=== PATIENT | female | born 1955 | race Caucasian/White ===

== ENCOUNTER 2018-09-13 21:04 | Inpatient (IN) | payer OTHER ==
[~2018-09-13] VITALS: Ht 162.6 cm; Wt 64.5 kg
[~2018-09-13 21:04] MED LIST: GLUCOSAMIN 500 PO
[2018-09-13 23:11] LABS: BASO % 0.8 % (0.0-2.0); EOS # 0.1 (0.0-0.7); GRAN # 1.7 (1.4-6.5); GRAN % 34.3 % (42.2-75.2); HEMOGLOBIN 10.3 g/dl (12.5-16.0); LYMPH # 2.3 (1.2-3.4); LYMPH % 45.8 % (20.0-51.0); MEAN CELL VOLUME 89 fl (80.0-100.0); MEAN CORPUSCULAR HEMOGLOBIN 30 pg (27.0-31.0); MEAN CORPUSCULAR HGB CONC 33 g/dl (33.0-37.0); MEAN PLATELET VOLUME 9.3 fl (7.4-10.4); MONO # 0.9 (0.1-0.6); MONO % 17.9 % (1.7-9.3); PLATELET COUNT 252 K/mm3 (130-400); RED BLOOD COUNT 3.46 M/mm3 (4.10-5.30); REDCELL DISTRIBUTION WIDTH-CV 16.5 % (11.5-14.5)
[2018-09-13 23:12] LABS: HEMATOCRIT 30.8 % (37.0-47.0)
[2018-09-13 23:25] LABS: ALANINE AMINOTRANSFERASE 34 U/L (9-52); ALBUMIN 4.1 gm/dL (3.5-5.0); ALKALINE PHOSPHATASE 158 U/L (50-136); ANION GAP 11 mmol/L (7-16); AST,SGOT 38 U/L (15-37); BILIRUBIN,TOTAL 0.2 mg/dL (0.0-1.0); BLOOD UREA NITROGEN 12 mg/dL (7-17); C-REACTIVE PROTEIN 1.7 mg/dL (0.0-0.9); CALCIUM 9.8 mg/dL (8.4-10.2); CARBON DIOXIDE 24 mmol/L (22-30); CHLORIDE 102 mmol/L (98-107); CREATININE, serum 0.74 (0.52-1.25); GLUCOSE 113 mg/dL (74-106); SODIUM 137 mmol/L (137-145); TOTAL PROTEIN 7.6 gm/dL (6.4-8.2)
[2018-09-13 23:54] LABS: TROPONIN-I < 0.012 ng/mL (0.000-0.035)
[2018-09-13] MEDS ORDERED: LIPITOR 40MG TA40 MG PO (23:58)
[2018-09-13] MEDS ORDERED: ZITHROMAX Z PA250 MG PO (23:58)
[2018-09-13] MEDS ORDERED: CALCIUM 600/VIT1 CAP PO (23:59)
[2018-09-13] MEDS ORDERED: DECADRON 4MG TAB4 MG PO (23:59)
[2018-09-14] MEDS ORDERED: PRINIVIL10 MG PO
[2018-09-14] MEDS ORDERED: HALLS9.1 MG
[2018-09-14] MEDS ORDERED: ADVIL200 MG PO
[2018-09-14 00:01] LABS: COLLECTION METHOD CLEAN CATCH
[2018-09-14] MEDS ORDERED: ATIVAN 0.50.5 MG/TAB PO (00:01)
[2018-09-14] MEDS ORDERED: MULTI VITAMINS1 TAB PO (00:02)
[2018-09-14] MEDS ORDERED: CARDI-OMEGA1000 MG (00:03)
[2018-09-14] MEDS ORDERED: VERAPAMIL120 MG/TA1 PO (00:04)
[2018-09-14] MEDS ORDERED: ZOFRAN ODT8 MG PO (00:04)
[2018-09-14] MEDS ORDERED: COMPAZINE 110 MG/TAB PO (00:04)
[2018-09-14] MEDS ORDERED: ZANTAC 150150 MG (00:04)
[2018-09-14 00:06] LABS: PH 6 (5-8); SQUAMOUS EPITHELIAL None Seen /hpf; URINE APPEARANCE Clear; URINE BACTERIA None Seen /hpf; URINE BILIRUBIN Negative (NEGATIVE); URINE BLOOD 2+ (NEGATIVE); URINE COLOR Colorless; URINE GLUCOSE Negative (NEGATIVE); URINE KETONE Negative (NEGATIVE); URINE LEUKOCYTE ESTERASE Negative (NEGATIVE); URINE NITRATE Negative (NEGATIVE); URINE PROTEIN(semi-quant) Negative (NEGATIVE); URINE RBC None Seen /hpf; URINE UROBILINOGEN Negative (NEGATIVE)
[2018-09-14 01:21] VITALS: BP 135/65; PULSE 117; TEMP 99.2
[2018-09-14] MEDS ORDERED: TYLENOL 325MG325 MG PO (01:53)
[2018-09-14] MEDS ORDERED: BENADRYL25 M2 PO (02:19)
--- NOTE | 2018-09-14 03:10 | NUR ---
Patient arrived to unit at 0130. 5 page, med rec, and initial completed. Patient denies pain. Noted to have a cough, but states its non-productive. Alert and oriented. States she had chemo last , September 04. She gets this every 3 weeks. She lives in [place] and is here visiting her sister in between chemo sessions. Heart rate continues to be above 100. Ermelinda Degroot, notified. Continues on telemetry. Will continue to monitor patient.
[2018-09-14 03:40] VITALS: BP 140/68; PULSE 124; TEMP 98.2
--- NOTE | 2018-09-14 06:16 | NUR ---
Patient stated she takes Benadryl at night to help her sleep sometimes and she would like this to help her sleep. PRN Benadryl given and effective. Patient has rested well since about 0400. Denies needs.
--- NOTE | 2018-09-14 06:56 | NUR ---
Report given to MELISSA Lopez.
[2018-09-14 07:50] VITALS: BP 133/68; PULSE 102; TEMP 98.5
[2018-09-14 08:06] LABS: BASO % 0.6 % (0.0-2.0); EOS # 0.1 (0.0-0.7); GRAN # 1.5 (1.4-6.5); GRAN % 29.9 % (42.2-75.2); LYMPH # 2.4 (1.2-3.4); LYMPH % 49.3 % (20.0-51.0); MEAN CELL VOLUME 91 fl (80.0-100.0); MEAN CORPUSCULAR HGB CONC 33 g/dl (33.0-37.0); MEAN PLATELET VOLUME 9.5 fl (7.4-10.4); MONO # 0.9 (0.1-0.6); MONO % 18.4 % (1.7-9.3); PLATELET COUNT 241 K/mm3 (130-400); RED BLOOD COUNT 2.97 M/mm3 (4.10-5.30); REDCELL DISTRIBUTION WIDTH-CV 16.8 % (11.5-14.5)
[2018-09-14 08:10] LABS: HEMATOCRIT 27.1 % (37.0-47.0); HEMOGLOBIN 8.8 g/dl (12.5-16.0); MEAN CORPUSCULAR HEMOGLOBIN 30 pg (27.0-31.0)
[2018-09-14 08:11] LABS: CALCIUM 8.6 mg/dL (8.4-10.2); CREATININE, serum 0.74 (0.52-1.25); POTASSIUM 3.9 mmol/L (3.4-5.0)
--- NOTE | 2018-09-14 10:13 | NUR ---
Patient resting in bed. Breakfast ordered. Denies pain. He sister stopped by. Spoke with warehouse shift supervisor about Port, no blood returned, but she said it is okay to infuse medications since it flushes well. Will let her rest
--- NOTE | 2018-09-14 11:13 | NUR ---
Patient sleeping soundly at this time, soft snoring noted.
[2018-09-14 11:30] VITALS: BP 132/62; PULSE 102; TEMP 98.7
--- NOTE | 2018-09-14 12:28 | NUR ---
Patient is from [place], [place] where she lives with her (Janes) but from May-September each year she travels back and forth to help at the [facility] [employer]. Patient is mostly independent with daily living activites however she is undergoing chemotherapy for urinary cancer and is in close contact with her primary care physician in [place]. Patient has no durable medical equipment anticipated needs at this time, her pharmacy is [facility], and she does not have advance directives completed at this time. No further needs and geriatric social work professor will follow as needed.
--- NOTE | 2018-09-14 13:44 | NUR ---
Patient ordered lunch. pain managed. rounded. Orders obtained.
--- NOTE | 2018-09-14 14:47 | NUR ---
Patient did well with lunch. Independent in room.
[2018-09-14 16:07] VITALS: BP 137/69; PULSE 103; TEMP 98.7
--- NOTE | 2018-09-14 17:12 | NUR ---
PATIENT AMBULTED THE HALLS & DID WELL. SITTING UP IN CHAIR.
[2018-09-14 19:33] VITALS: BP 151/71; PULSE 112; TEMP 99.4
--- NOTE | 2018-09-14 19:45 | NUR ---
Bedside report received from MELISSA Snell
--- NOTE | 2018-09-14 20:00 | NUR ---
Assessment complete. Patient up sitting in the chair at this time. States she is going to be playing cards with her sister who is coming to visit. No complaints of pain. Lungs are coarse in all huitron, patient now has a dry cough, was previously productive. Bowel sounds are active, HR regular. Patient has no current needs at this time. Will continue to monitor. Call light within reach.
--- NOTE | 2018-09-15 | NUR ---
Patient in bed at this time. Requests some benadryl to help sleep. Patient states that her dry cough is making her leak urine and requests for adult diaper to put on. Provided. Patient has no further needs. Will continue to monitor. Call light within reach.
[2018-09-15 00:28] VITALS: BP 136/72; PULSE 101; TEMP 98.3
--- NOTE | 2018-09-15 04:00 | NUR ---
Patient asleep at this time but awakens to knock at the door. Patient has complaints of pain in her hip at 2/10, does not want anything for it right now. No further needs. Will continue to monitor. Call light within reach.
--- NOTE | 2018-09-15 04:00 | NUR ---
Patient up to the restroom at this time. Standby assist. Patient returns to bed and wishes to sleep more. Patient rates pain 2/10 or a 4/10 when walking. States it is much improved since yesterday. Patient has no further needs at this time. Will continue to monitor. Call light within reach.
[2018-09-15 04:37] VITALS: BP 136/78; PULSE 99; TEMP 98.2
--- NOTE | 2018-09-15 07:21 | NUR ---
Bedside report given to MELISSA Morgan
[2018-09-15 08:33] LABS: BASO % 0.6 % (0.0-2.0); EOS # 0.1 (0.0-0.7); EOS % 1.7 % (0-4.0); GRAN # 1.5 (1.4-6.5); GRAN % 27.9 % (42.2-75.2); HEMATOCRIT 28.5 % (37.0-47.0); HEMOGLOBIN 9.2 g/dl (12.5-16.0); LYMPH # 2.8 (1.2-3.4); MEAN CELL VOLUME 91 fl (80.0-100.0); MEAN CORPUSCULAR HEMOGLOBIN 29 pg (27.0-31.0); MEAN CORPUSCULAR HGB CONC 32 g/dl (33.0-37.0); MEAN PLATELET VOLUME 9.4 fl (7.4-10.4); MONO # 0.9 (0.1-0.6); MONO % 16.7 % (1.7-9.3); PLATELET COUNT 252 K/mm3 (130-400); RED BLOOD COUNT 3.12 M/mm3 (4.10-5.30); REDCELL DISTRIBUTION WIDTH-CV 17.2 % (11.5-14.5)
[2018-09-15 08:34] VITALS: BP 135/77; PULSE 98; TEMP 97.4
[2018-09-15 08:38] LABS: CALCIUM 9.3 mg/dL (8.4-10.2); CREATININE, serum 0.66 (0.52-1.25); MAGNESIUM 1.6 mg/dL (1.6-2.3); POTASSIUM 3.8 mmol/L (3.4-5.0)
--- NOTE | 2018-09-15 10:00 | NUR ---
Report received from MELISSA Morgan. Pt in bed resting, waiting for food. Denies needs, will continue to monitor.
[2018-09-15 11:49] VITALS: BP 134/78; PULSE 112; TEMP 98.4
--- NOTE | 2018-09-15 15:43 | NUR ---
Discharge teaching completed at this time. Peace needle d/c'd, tip intact, bandaid placed over portacath site. Discharge packet reviewed, answered all questions. Pt will be leaving with all belongings. Wants to walk out herself with surgical staff. Sister to drive home, criteria met.
== END 2018-09-15 15:55 | disposition home or self-care (01) | DRG 810 ==
LOC: COL.ER 21:04 → SURG 23:44
PROVIDERS: Emergency Medicine; Internal Medicine; Nurse Practitioner; ADMIT Hospitalist
DX: D70.8 Other neutropenia (principal); C55 Malignant neoplasm of uterus, part unspecified; E78.5 Hyperlipidemia, unspecified; R50.81 Fever presenting with conditions classified elsewhere; Z85.42 Personal history of malignant neoplasm of other parts of uterus; Z92.21 Personal history of antineoplastic chemotherapy; Z85.3 Personal history of malignant neoplasm of breast; Z92.3 Personal history of irradiation
CPT/HCPCS: OP; 99222-AI; 99239; J0692; J2543; J3475; J7030